=== PATIENT | male | born 1960 | race Caucasian/White ===

== ENCOUNTER → 2018-08-10 | Outpatient (CLI) | payer MEDICARE ==
[2018-08-09 12:51] VITALS: BMI 23.3
[2018-08-10 14:04] VITALS: BP 121/73; PULSE 83; RESP 16
--- NOTE | 2018-08-11 19:25 | P.PAINCN ---
History of Present Illness - Reason for Consult Consult date: 08/10/18 - History of Present Illness This is 57 years old male with a chronic history of severe low back pain, pain started more than 20 years ago, around 4 years ago he had lumbar laminectomy surgery, pain increased recently, he was evaluated by orthopedic spine surgeon Dr. Doe, in May 2018 and he did not recommend any further surgical interventions, the pain is constant and increases with any activity with intensity of the pain is 3/10 and increases with activity to 9/10, currently he is on, [place] 10/325 every 6 hours and Neurontin 600 mg every 8 hours and baclofen 10 mg every 6 hours, Mobic 15 mg daily , he denies any fever or night sweats he denies any, motor or sensory deficit, he reported that he had a back injection and hip injection without any significant benefit. Past Medical History Past Medical History: Hyperlipidemia, Musculoskeletal Disorder, Osteoarthritis ( OA) Additional Past Medical History / Comment(s): SPINAL STENOSIS, SCOLIOSIS, HERNIATED DISC, BACK PAIN. History of Any Multi-Drug Resistant Organisms: None Reported Past Surgical History: Back Surgery, Tonsillectomy Additional Past Surgical History / Comment(s): PAIN PROCEDURES, BACK SURGERY ( APRIL 2014) Past Anesthesia/Blood Transfusion Reactions: No Reported Reaction Smoking Status: Current every day smoker - Past Family History Mother Family Medical History: Cancer Additional Family Medical History / Comment(s): OVARIAN CA Father Family Medical History: Coronary Artery Disease (CAD), Diabetes Mellitus, Deep Vein Thrombosis (DVT) Additional Family Medical History / Comment(s): POSS HX OF DVT, NOT CERTAIN Medications and Allergies Home Medications Medication Instructions Recorded Confirmed Type Baclofen [Lioresal] 10 mg PO QID 04/26/14 08/09/18 History HYDROcodone/APAP 10-325MG [[place] 1 tab PO QID 02/19/16 08/09/18 History 10-325] Meloxicam [Mobic] 15 mg PO DAILY 02/19/16 08/09/18 History Atorvastatin [Lipitor] 20 mg PO DAILY 08/09/18 08/09/18 History Gabapentin [Neurontin] 600 mg PO QID 08/09/18 08/09/18 History Allergies Allergy/AdvReac Type Severity Reaction Status Date / Time Sulfa (Sulfonamide Allergy Rash/Hives Verified 08/09/18 12:40 Antibiotics) SEASONAL ALLERGIES AdvReac Mild NASAL Uncoded 08/09/18 12:40 CONGESTION Physical Exam Social history : smoker , socially ETOH , NO Illegal drugs Review of Systems : 1- Constitutional : no chills , no fever , no night sweats , 2- Ears : no ear discharge , no change in hearing 3-Nose, Mouth ,Throat ; no bleeding gums, no sore throat , no epistaxis , 4-Cardiovascular : Denies chest pain, , no orthopnea , no palpitation 5-Respiratory : Denies cough , no dyspnea , no hemoptysis 6-Gastrointestinal :, no change in bowel habits , no coffee- ground emesis . 7-Genitourinary : No hematuria , no discharge , no incontinence, 8-Musculoskeletal : No gait dysfunction , report low back pain , 9- Neurological : no ataxia , no tremor , no sezure , 10-Psychatric , no suicidal ideation no hallucination 11- Endocrine : no cold intolerence , no polyuria , no polydypsia , 12-Hematologic : no easy bleeding , no easy brusing , 13-Allergic / immunology : no angioedema , no wheezing ,no allergic rhinitis 14-Integumentary : no brttle nails , no change hair / nails , no foot/leg ulcers . Physical Examinations : 1-Constitutional : Cooperative , not in acute distress . 2-HEENT : nech ; supple , no Lymphadenopathy , no Thyromegaly , :eyes , no icterus, no photophobia . ENT : , normal oropharynx , no Thrush 3- Respiratory : Chest clear to auscultations Bilaterally , no wheezing . 4- Cardiovascular : regular rate and rhythem , S1 , S2 , no S3 , no S4. 5- Gastrointestinal: abdomen soft no tenderness , no organomegally . 6- Genitourinary : Defferred . 7-Integumentary : No cellulitis , no ulcers , normal skin turgor , no cyanotic . 8- neurologic : Cranial nerve II to XII intact , no focal neurological deffecit 9-psychatric : alert , oriented X 3 , appropriate affect , intact judgment and insight . 10-Lymphatic : no Lymphadenopathy. 11- musculoskeltal: abnormal gait Lumber spine moter stegnth lower extremities ,thigh and legs 5/5 Right side , 5/5 Left side deep tendon reflexes : normal Knee Jerk , normal ankle Jerk positive lumber facet Loading Test Range of motion of the lumbar spine Flexion 30 degrees, extension 10 degrees strait leg raising test , positive at 30 degree Fabere test positive RT and positive LT . Sever tenderness over the Sacroiliac joint on the R and L sides Results Comments: MRI of the lumbar spine L3 4 facet arthropathy, moderate spinal canal stenosis, L4-L5 /l5-R0xgotq arthropathy and epidural fibrosis Assessment and Plan Plan: Assessment AND PLAN= chronic severe low back pain secondary to failed back surgery syndrome lumbar area and lumbar spondylosis with lumbar facet arthropathy. Patient will be good candidate to have caudal epidural steroid injection with lysis of epidural adhesions under fluoroscopy guidance We'll do the procedure twice , then we will reevaluate if there is any need to target the facetogenic component of his low back pain, And if he continued to have pain after the caudal epidural lysis, then we will consider doing diagnostic medial branch block. Patient should continue his current medication , and he is getting prescription refills from his primary care, he denies any side effect of the medication Time with Patient: Greater than 30 PQRS Measure Charge Sheet Measure #130: Documentation of Current Meds in Medical Chart: Patient's medications documented in chart Measure #226: Tobacco Use: Screen & Cessation Intervention: Pt screened for tobacco use AND intervention given Measure #111: Pneumonia Vaccination: Pneumococcal vaccine NOT administered or previously given Measure #47: Advance Care Plan: Advance care planning discussed & documented, pt chose/unable to give Measure #412: Opioid Treatment Agreement: No documentation of signed opioid treatment agreement Measure #408: Opioid Therapy Follow-up Evaluation: Patient had NO f/u eval minimum every 3 months during opioid therapy Measure #317: Preventitive Care & Scrn High Bld Press & F/U: Normal blood pressure, f/u not required Measure #128: Body Mass Index (BMI) Screening & Follow-up: BMI documented within normal parameters Measure #131: Pain Assessment & Follow-up: Pain positive & plan documented, Follow-up scheduled Measure #431: Unhealthy Alcohol Use Preventative Care & Scrn: Patient not identified as an unhealthy alcohol user PQRS Narrative: Smoking Status Current every day smoker Do You Want the Pneumonia No Vaccine AT THIS TIME? Blood Pressure 121/73 Pain Intensity [Back] 9 Scale Used Numeric (1 - 10) Hx Alcohol Use (MH) Yes Home Medications: Ambulatory Orders Baclofen [Lioresal] 10 mg PO QID 06/06/14 HYDROcodone/APAP 10-325MG [[place] 10-325] 1 tab PO QID 02/19/16 Meloxicam [Mobic] 15 mg PO DAILY 02/19/16 Atorvastatin [Lipitor] 20 mg PO DAILY 08/09/18 Gabapentin [Neurontin] 600 mg PO QID 08/09/18
== END ==
LOC: PNWHC3 13:25
PROVIDERS: ATTEND Specialist
DX: M96.1 Postlaminectomy syndrome, not elsewhere classified (principal); M47.816 Spondylosis without myelopathy or radiculopathy, lumbar region; M46.96 Unspecified inflammatory spondylopathy, lumbar region; F17.200 Nicotine dependence, unspecified, uncomplicated; Z79.899 Other long term (current) drug therapy; Z79.891 Long term (current) use of opiate analgesic; Z79.2 Long term (current) use of antibiotics
CPT/HCPCS: 99211

== ENCOUNTER → 2019-08-03 | Outpatient (CLI) | payer MEDICARE ==
--- NOTE | 2019-08-05 14:49 | MR ---
EXAMINATION TYPE: MR lumbar spine wo/w con DATE OF EXAM: 08/03/2019 COMPARISON: NONE HISTORY: Chronic pain / Low back pain/ other intervertebral disc degeneration per order. TECHNIQUE: Multiplanar, multisequence images of the lumbar spine is performed without and with IV contrast, util izing 7.5 mL intravenous Gadavist FINDINGS: Sagittal images of the lumbar spine show vertebral body heights and alignment to appear sat isfactory. Multilevel disc desiccation with mild to moderate multilevel disc space narrowing. The co nus medullaris is normal in position and signal ending inferior T12 level. Mild to moderate multileve l anterior spurring. The bone marrow signal intensity is within normal limits. No suspicious enhancem ent. Axial images at T12-L1 level shows lobulated paracentral disc protrusion minimally effacing anterior thecal sac. Bilateral neural foramina are patent. Axial images at the L1-L2 level shows etco-bt-jrmamzsu broad disc bulge with central disc protrusion component effacing the anterior thecal sac. Mild facet degenerative changes are present bilaterally. Bilateral neural foramina are patent. Axial images at L2-L3 level shows opfs-vz-nsjahifm broad disc bulge effacing anterior thecal sac with mild facet degenerative changes bilaterally. There is mild bilateral anterior inferior neural forami nal narrowing. Axial images at the L3-L4 levels show mild to moderate facet degenerative changes and ligamentum flav a hypertrophy. There is fjpb-cd-ltqqrivj broad disc bulge mildly effaces the anterior thecal sac. The re is mild bilateral anterior inferior neural foraminal narrowing. Axial images at the L4-L5 level show moderate facet degenerative changes bilaterally. There is annula r tear with increased signal posteriorly. There is broad-based right paracentral disc protrusion. The re is mild right greater than left anterior inferior neural foraminal narrowing. There is minimal eff acement of anterior thecal sac. Axial images at the L5-S1 levels show wypk-de-khnkpebp facet degenerative changes bilaterally. Spinal canal is preserved. There is mild left greater than right bilateral neural foraminal narrowing. No suspicious incidental retroperitoneal findings. No suspicious enhancement. IMPRESSION: Multilevel degenerative changes in the lumbar spine as detailed above.
== END ==
LOC: RADMRIMAIN 16:18
PROVIDERS: ATTEND Family Medicine
DX: M47.816 Spondylosis without myelopathy or radiculopathy, lumbar region (principal); M47.817 Spondylosis without myelopathy or radiculopathy, lumbosacral region
CPT/HCPCS: 72158; A9585

== ENCOUNTER → 2021-08-05 | Outpatient (CLI) | payer MEDICARE ==
--- NOTE | 2021-08-06 08:22 | CT ---
EXAMINATION TYPE: CT urogram wo/w con DATE OF EXAM: 08/05/2021 COMPARISON: None. HISTORY: Hematuria CT DLP: 2304 mGycm, Automated Exposure Control for Dose Reduction was Utilized. CONTRAST: CT scan of the abdomen and pelvis is performed with follow-up oral and without and with IV Contrast, patient injected with 100 mL of Isovue 300. Urogram protocol with 3-D reconstructed images created on an independent workstation and reviewed. FINDINGS: KUB: Noncontrast images show no renal calculi bilaterally. Postcontrast images show symmetric cortico medullary uptake and excretion without concerning solid or cystic renal mass. Left ureter is not comp letely opacified, no obstructing calculus or mass clearly seen. No intraluminal calculus or mass with in bladder. LUNG BASES: Dependent atelectasis in the bilateral bases. Tiny pericardial effusion anterior inferior aspect. Calcifications suspected distal RCA distribution. LIVER/GB: No significant abnormality is appreciated. PANCREAS: No significant abnormality is seen. SPLEEN: No significant abnormality is seen. ADRENALS: No significant abnormality is seen. BOWEL: Sigmoid colonic diverticulosis. PROSTATE/SEMINAL VESICLES: No gross abnormality seen. LYMPH NODES: No greater than 1cm abdominal or pelvic lymph nodes are appreciated. OSSEOUS STRUCTURES: Zlwp-zo-csulqtee multilevel disc space narrowing. Facet arthropathy lower lumbar levels. OTHER: Mild to moderate calcified plaque of the aorta extends into branch vessels. IMPRESSION: Source of hematuria not identified.
== END | disposition home or self-care (01) ==
LOC: RADCTMAIN 16:05
PROVIDERS: ATTEND Urology
DX: R31.9 Hematuria, unspecified (principal)
CPT/HCPCS: 74178; 74400; Q9967

== ENCOUNTER → 2024-03-23 | Outpatient (CLI) | payer MEDICARE ==
--- NOTE | 2024-03-23 09:57 | XR ---
EXAM TYPE: LUMBAR SPINE X RAY SERIES COMPARISON: NONE HISTORY: Pain TECHNIQUE: 4 views are submitted. FINDINGS: Alignment is anatomic. The pedicles are intact. The transverse processes are intact. Diffuse osteop enia with retrograde stasis L1-L2 and L2-L3 grade 1. Multilevel mild to moderate degenerative disc di sease. Facet arthropathy most marked at the levels L3-S1. IMPRESSION: 1. Multilevel lwkl-rz-hgjxkzpz degenerative disc disease with facet arthropathy. Suspect foraminal en croachment at L4-5 and L5-S1. Recommend MRI.
--- NOTE | 2024-03-23 10:04 | XR ---
EXAMINATION TYPE: XR Hip Complete RT DATE OF EXAM: 03/23/2024 COMPARISON: NONE HISTORY: Pain TECHNIQUE: 2 views submitted FINDINGS: There is severe arthropathy of the hip with hypertrophic changes and spurring of the humeral head. Th ere is remodeling of the acetabulum. SI joint arthropathy. Assessment for fracture limited. No defini te fracture. IMPRESSION: 1. Severe right hip arthropathy with hypertrophic spurring. 2. SI joint arthropathy.
== END | disposition home or self-care (01) ==
LOC: RADXRYALE 09:01
PROVIDERS: ATTEND Family Medicine
DX: M47.26 Other spondylosis with radiculopathy, lumbar region (principal); M51.16 Intervertebral disc disorders with radiculopathy, lumbar region; M16.11 Unilateral primary osteoarthritis, right hip; M46.1 Sacroiliitis, not elsewhere classified
CPT/HCPCS: 72110; 73502